=== PATIENT | female | born 1970 | race Caucasian/White ===

== ENCOUNTER 2020-03-22 18:30 | Emergency (ER) | payer SELFPAY ==
[~2020-03-22] VITALS: Ht 172.7 cm; Wt 181.4 kg
[2020-03-22 18:30] VITALS: BP_SYST 0
== END 2020-03-22 23:57 | disposition expired ==
LOC: SED 18:30
DX: I46.9 Cardiac arrest, cause unspecified (principal)
CPT/HCPCS: 99285